=== PATIENT | male | born 1975 | race Caucasian/White ===

== ENCOUNTER 2018-02-02 19:13 | Emergency (ER) | payer MEDICAID ==
[~2018-02-02] VITALS: Ht 182.9 cm; Wt 95.2 kg
[~2018-02-02 19:13] MED LIST: CEPH500 PO; CYCL10 PO; HYDACE5 PO; HYDACE5325 PO; METCAR750 PO; METPRE4DP PO; METR500 PO; NAPR500 PO; NAPR500EC PO; OXYACE5T PO; PRED20 PO; RXHYD5325 PO
[2018-02-02] MEDS ORDERED: Cleocin HCl300 MG PO (21:07)
[2018-02-02] MEDS ORDERED: IBUP800 PO (21:07)
== END 2018-02-02 21:14 | disposition home or self-care (01) ==
LOC: ER 19:13
DX: K04.7 Periapical abscess without sinus (principal); Z88.0 Allergy status to penicillin; Z79.2 Long term (current) use of antibiotics
CPT/HCPCS: 10160; 64400; 99283

== ENCOUNTER 2019-07-27 19:21 | Emergency (ER) | payer OTHER ==
[~2019-07-27] VITALS: Ht 182.9 cm; Wt 90.7 kg
[~2019-07-27 19:21] MED LIST changes: +Bactrim Ds Tab1 EACH PO; +Cleocin HCl300 MG PO; +IBUP800 PO
[2019-07-27] MEDS ORDERED: Vibramycin100 MG PO (19:54)
== END 2019-07-27 19:59 | disposition home or self-care (01) ==
LOC: ER 19:21
DX: L03.115 Cellulitis of right lower limb (principal); K11.20 Sialoadenitis, unspecified; R03.0 Elevated blood-pressure reading, without diagnosis of hypertension; L97.919 Non-pressure chronic ulcer of unspecified part of right lower leg with unspecified severity; F17.200 Nicotine dependence, unspecified, uncomplicated; Z88.0 Allergy status to penicillin
CPT/HCPCS: 99283

== ENCOUNTER 2019-10-21 23:04 | Emergency (ER) | payer OTHER ==
[~2019-10-21] VITALS: Ht 182.9 cm; Wt 95.2 kg
[~2019-10-21 23:04] MED LIST changes: +Vibramycin100 MG PO
[2019-10-22] MEDS ORDERED: Cleocin HCl150 MG PO (00:14)
[2019-10-22] MEDS ORDERED: KETO10 PO (00:14)
== END 2019-10-22 00:30 | disposition home or self-care (01) ==
LOC: ER 23:04
DX: L03.115 Cellulitis of right lower limb (principal); F17.200 Nicotine dependence, unspecified, uncomplicated; Z88.0 Allergy status to penicillin
CPT/HCPCS: 99283; A9270-GY

== ENCOUNTER 2020-09-04 23:12 | Emergency (ER) | payer OTHER ==
[~2020-09-04] VITALS: Ht 182.9 cm; Wt 99.8 kg
[~2020-09-04 23:12] MED LIST changes: +Cleocin HCl150 MG PO; +KETO10 PO
[2020-09-05] MEDS ORDERED: Vibramycin100 MG PO (02:11)
[2020-09-05] MEDS ORDERED: Cleocin HCl300 MG PO (02:11)
== END 2020-09-05 02:45 | disposition home or self-care (01) ==
LOC: ER 23:12
DX: S61.552A Open bite of left wrist, initial encounter (principal); S51.852A Open bite of left forearm, initial encounter; S31.159A Open bite of abdominal wall, unspecified quadrant without penetration into peritoneal cavity, initial encounter; F17.210 Nicotine dependence, cigarettes, uncomplicated; Z88.0 Allergy status to penicillin; Z23 Encounter for immunization; W54.0XXA Bitten by dog, initial encounter
CPT/HCPCS: 73090; 73130; 90471; 90714; 99283-25; A9270-GY

== ENCOUNTER 2022-09-18 07:12 | Emergency (ER) | payer OTHER ==
[~2022-09-18] VITALS: Ht 185.4 cm; Wt 108.9 kg
[2022-09-18 09:02] LABS: BASOPHILS ABSOLUTE AUTO 0.02 K/mm3 (0.00-0.23); BASOPHILS PERCENT AUTO 0 % (0-2); EOSINOPHILS ABSOLUTE AUTO 0.14 K/mm3 (0.00-0.68); EOSINOPHILS PERCENT AUTO 2 % (0-6); Hematocrit 47.1 % (37.0-53.0); IMMATURE GRAN ABSOLUTE AUTO 0.03 K/mm3 (0.00-0.10); IMMATURE GRAN PERCENT AUTO 0 % (0-1); LYMPHOCYTES PERCENT AUTO 18 % (21-46); MONOCYTES ABSOLUTE AUTO 1.11 K/mm3 (0.16-1.47); MONOCYTES PERCENT AUTO 12 % (4-13); Mean Corpuscular HGB 28.5 pg (26.0-34.0); Mean Corpuscular Volume 84 fL (80-100); Mean Platelet Volume 11.4 fL (9.1-12.4); NEUTROPHILS ABSOLUTE AUTO 6.61 K/mm3 (1.96-9.15); NEUTROPHILS PERCENT AUTO 69 % (41-73); Platelet Count 261 K/mm3 (150-400); RDW Coefficient Variation 12.4 % (11.7-14.2); RDW Standard Deviation 37.9 fL (35.1-46.3); Red Blood Cell Count 5.62 M/mm3 (4.30-5.90); White Blood Cell Count 9.61 K/mm3 (4.00-11.30)
[2022-09-18 09:35] LABS: C-REACTIVE PROTEIN, EXT RANGE 2.75 mg/dL (0.000-0.300)
[2022-09-18 09:36] LABS: Albumin, Blood 3.4 g/dL (3.4-5.0); Albumin/Globulin Ratio 0.8 (0.8-1.8); Bilirubin, Total 0.7 mg/dL (0.1-1.0); Bun/Creatinine Ratio 15.7 (12.0-20.0); Calcium, Blood 8.9 mg/dL (8.5-10.1); Creatinine, Blood 0.76 mg/dL (0.60-1.20); Globulin, Blood 4.5 g/dL (2.2-4.0); Potassium, Blood 3.6 mmol/L (3.5-5.5); Total Protein, Blood 7.9 g/dL (6.4-8.2)
[2022-09-18 09:43] LABS: Source, Urine Clean Catch
[2022-09-18 10:01] LABS: Appearance, Urine Clear (Clear); Bilirubin, Urine Neg (Neg); Blood, Urine Neg (Neg); Color, Urine Yellow (P-Yellow); Glucose Qualitative, Urine Neg (Neg); Ketones, Urine Neg (Neg); Leukocyte Esterase, Urine Neg (Neg); Nitrite, Urine Neg (Neg); Protein, Urine 1+ (Neg); Specific Gravity, Urine 1.015 (1.003-1.022); Urobilinogen, Urine 1+ (Normal); pH, Urine 6.5 (5.0-8.0)
[2022-09-18] MEDS ORDERED: SULTRIDS PO (10:41)
[2022-09-18] MEDS ORDERED: MORP30 PO (10:41)
== END 2022-09-18 11:07 | disposition home or self-care (01) ==
LOC: ER 07:12
PROVIDERS: Student in an Organized Health Care Education/Training Program
DX: L03.315 Cellulitis of perineum (principal); F17.210 Nicotine dependence, cigarettes, uncomplicated; Z88.0 Allergy status to penicillin
CPT/HCPCS: 36415; 72193; 80053; 83735; 85025; 85651; 86140; A9270; J0696; J1885; Q9967

== ENCOUNTER 2024-04-19 06:38 | Emergency (ER) | payer OTHER ==
[~2024-04-19] VITALS: Ht 182.9 cm; Wt 99.8 kg
[~2024-04-19 06:38] MED LIST changes: +MORP30 PO; +SULTRIDS PO
[2024-04-19 07:06] VITALS: BP 155/102
[2024-04-19] MEDS ORDERED: Ondansetron 4 MG SoluTab SL ONE (07:35)
[2024-04-19] MEDS ORDERED: Trimethoprim/Sulfamethoxazole DS Tab PO ONE (07:35)
[2024-04-19] MEDS ORDERED: ONDA4ODT MM (07:35)
== END 2024-04-19 08:30 | disposition home or self-care (01) ==
LOC: ER 06:38
DX: L03.211 Cellulitis of face (principal); L02.01 Cutaneous abscess of face; Z88.0 Allergy status to penicillin; Z79.899 Other long term (current) drug therapy; F17.210 Nicotine dependence, cigarettes, uncomplicated
CPT/HCPCS: 99283; A9270

== ENCOUNTER 2025-10-09 06:36 | Emergency (ER) | payer OTHER ==
[~2025-10-09] VITALS: Ht 182.9 cm; Wt 104.3 kg
[~2025-10-09 06:36] MED LIST changes: +ONDA4ODT MM
[2025-10-09 06:54] LABS: BASOPHILS ABSOLUTE AUTO 0.02 K/mm3 (0.00-0.23); BASOPHILS PERCENT AUTO 0 % (0-2); EOSINOPHILS ABSOLUTE AUTO 0.11 K/mm3 (0.00-0.68); EOSINOPHILS PERCENT AUTO 1 % (0-6); Hematocrit 44.4 % (37.0-53.0); Hemoglobin 15.0 g/dL (13.5-17.5); IMMATURE GRAN ABSOLUTE AUTO 0.02 K/mm3 (0.00-0.10); IMMATURE GRAN PERCENT AUTO 0 % (0-1); LYMPHOCYTES ABSOLUTE AUTO 1.22 K/mm3 (0.84-5.20); LYMPHOCYTES PERCENT AUTO 12 % (21-46); MONOCYTES ABSOLUTE AUTO 0.87 K/mm3 (0.16-1.47); MONOCYTES PERCENT AUTO 9 % (4-13); Mean Corpuscular HGB Conc 33.8 g/dL (31.5-36.5); Mean Corpuscular Volume 84 fL (80-100); NEUTROPHILS ABSOLUTE AUTO 7.84 K/mm3 (1.96-9.15); NEUTROPHILS PERCENT AUTO 78 % (41-73); NRBC ABSOLUTE 0.00 K/mm3 (0.00-0.02); NRBC Auto 0.0 /100 WBC (0.0-0.2); Platelet Count 233 K/mm3 (150-400); RDW Coefficient Variation 12.5 % (11.7-14.2); RDW Standard Deviation 38.8 fL (35.1-46.3)
[2025-10-09 07:13] LABS: Alanine Aminotransfer (ALT/SGP 32.0 U/L (12-78); Albumin, Blood 3.8 g/dL (3.4-5.0); Albumin/Globulin Ratio 0.9 (0.8-1.8); Anion Gap 9.0 mmol/L (3-11); Aspartate Aminotrans (AST/SGOT 29.0 U/L (12-37); Bilirubin, Total 0.8 mg/dL (0.1-1.0); Blood Urea Nitrogen 21.0 mg/dL (8-24); CO2, Blood 28.0 mmol/L (21-32); Calcium, Blood 9.3 mg/dL (8.5-10.1); Chloride, Blood 102.0 mmol/L (98-108); Creatinine, Blood 0.95 mg/dL (0.60-1.20); Globulin, Blood 4.1 g/dL (2.2-4.0); Glucose, Blood 118.0 mg/dL (70-99); Potassium, Blood 4.0 mmol/L (3.5-5.5); Sodium, Blood 135.0 mmol/L (136-145); Total Protein, Blood 7.9 g/dL (6.4-8.2)
[2025-10-09] MEDS ORDERED: Magnesium Sulf 2 GM/Water 50ML 50 ML IV ONE (07:35)
[2025-10-09] MEDS ORDERED: Ketorolac Tromethamine 30mg Vial IV ONE (07:35)
[2025-10-09 08:04] LABS: C-REACTIVE PROTEIN, EXT RANGE 1.43 mg/dL (0.000-0.300); Magnesium, Blood 2.1 mg/dL (1.6-2.4)
[2025-10-09] MEDS ORDERED: GABA300 PO (10:46)
[2025-10-09 11:17] VITALS: BP 147/115
== END 2025-10-09 11:30 | disposition home or self-care (01) ==
LOC: ER 06:36
PROVIDERS: Student in an Organized Health Care Education/Training Program
DX: G62.9 Polyneuropathy, unspecified (principal); M25.562 Pain in left knee; M25.561 Pain in right knee; G89.29 Other chronic pain; Z88.0 Allergy status to penicillin; Z79.899 Other long term (current) drug therapy; F17.200 Nicotine dependence, unspecified, uncomplicated
CPT/HCPCS: 73502; 73562-LT; 80053; 83735; 85025; 85651; 86140; 96365; 96375; 99284-25; A9270; J1885; J3475